=== PATIENT | female | born 1990 | race Caucasian/White ===

== ENCOUNTER 2017-09-28 09:11 | Emergency (ER) | payer OTHER ==
[~2017-09-28] VITALS: Ht 167.6 cm; Wt 87.4 kg
[~2017-09-28 09:11] MED LIST: LEVO250T9 PO; UDROBDM PO
[2017-09-28 09:13] VITALS: Ht 167.6 cm; Wt 87.4 kg
[2017-09-28] MEDS ORDERED: CEPH-443 PO (10:10)
[2017-09-28] MEDS ORDERED: MUPI22OI2 TOP (10:10)
--- NOTE | 2017-09-28 10:15 | ERD ---
ER Documentation Chief Complaint Chief Complaint rash to face spreading to chest x2 days HPI This is a 27-year-old female who presents the emergency department today for a rash that stings on her face that is spreading to her chest for the past 2 days. Patient states that she used Noxzema for acne to clean her face. Denies any new soaps, new detergents, new foods. States that she does get laser hair removal. Denies any fevers or chills. ROS All systems reviewed and are negative except as per history of present illness. Medications Home Meds Active Scripts Cephalexin* (Keflex*) 500 Mg Capsule, 500 MG PO QID for 7 Days, CAP Prov:TATI GILBERT PA-C 09/28/17 Mupirocin* (Bactroban*) 2% -22 Gram Oint...g., 1 APPLIC TOP BID for 7 Days, EA Prov:TATI GILBERT PA-C 09/28/17 Levofloxacin* (Levofloxacin*) 250 Mg Tablet, 250 MG PO DAILY for 3 Days, TAB Prov:ESTELITA BENJAMIN PASTRY COOK 01/18/16 Guaifenesin-Dextromethorphan* (Robitussin* DM) 5 Ml Syrup, 5 ML PO Q4H Y for cough for 5 Days Prov:ESTELITA BENJAMIN NP 01/18/16 Allergies Allergies: Coded Allergies: No Known Drug Allergies (Verified Allergy, Mild, 09/28/17) PMhx/Soc Medical and Surgical Hx: pt denies Medical Hx, pt denies Surgical Hx History of Surgery: No Anesthesia Reaction: No Hx Neurological Disorder: No Hx Respiratory Disorders: No (Bronchitis ) Hx Cardiac Disorders: No Hx Psychiatric Problems: No Hx Miscellaneous Medical Probl: No Hx Alcohol Use: Yes (glass of white wine last week) Hx Substance Use: No Hx Tobacco Use: No Smoking Status: Never smoker Physical Exam Vitals Vital Signs Date Time Temp Pulse Resp B/P Pulse Ox O2 Delivery O2 Flow Rate FiO2 09/28/17 09:13 99.2 98 18 135/77 96 Physical Exam Const: NAD Head: Atraumatic Eyes: Normal Conjunctiva ENT: Normal External Ears, Nose and Mouth. No evidence of angioedema. Uvula midline. Neck: Full range of motion..~ No meningismus. Resp: Clear to auscultation bilaterally Cardio: Regular rate and rhythm, no murmurs Abd: Soft, non tender, non distended. Normal bowel sounds Skin: Multiple pinpoint small pustules over her face and neck with mild erythema. No purulent drainage. Back: No midline or flank tenderness Ext: No cyanosis, or edema Neur: Awake and alert Psych: Normal Mood and Affect Procedures/MDM This a 27-year-old female who presents emergency department today for rash on her and neck for the past 2 days that is getting worse. On physical exam patient has multiple small pustules that are pinpoint diffusely over her face and neck. Patient does endorse getting laser hair removal in her symptoms at this time was consistent with folliculitis. Patient is afebrile and otherwise well-appearing. She is very talkative. Low suspicion for angioedema or anaphylaxis. Low suspicion for urticaria, SJS, cellulitis, deep space tracking infection, viral exanthem. Patient will be given a prescription for Bactroban and Keflex. At this time the patient is stable for discharge and outpatient management. Patient should follow up with their PCP in the next 1-2 days. They may return to the emergency department sooner for any persistent or worsening of symptoms. Patient understood and agreed with the plan. Dr. Stout has seen and evaluated the patient and she is in agreement with the plan. Departure Diagnosis: Primary Impression: Rash and other nonspecific skin eruption Condition: Fair Patient Instructions: Self-Care for Skin Rashes, Folliculitis Referrals: TONI SOW (PCP) Additional Instructions: Call your primary care doctor TOMORROW for an appointment during the next 1-2 days.See the doctor sooner or return here if your condition worsens before your appointment time. take antibiotics as prescribed. Keep area clean and do not use Noxzema at this time Do not get laser hair removal TATI GILBERT PA-C Sep 28, 2017 10:15
== END 2017-09-28 10:17 | disposition home or self-care (01) ==
LOC: FTE 09:11
DX: R21 Rash and other nonspecific skin eruption (principal)
CPT/HCPCS: 99284

== ENCOUNTER 2018-11-28 01:12 | Emergency (ER) | payer SELFPAY ==
[~2018-11-28] VITALS: Ht 167.6 cm; Wt 91.8 kg
[~2018-11-28 01:12] MED LIST changes: +CEPH-443 PO; +GUAI5SYR2 PO; +MUPI22OI2 TOP; -UDROBDM PO
[2018-11-28 01:19] VITALS: BP 133/78; PULSE 101; RESP 18; Ht 167.6 cm; Wt 91.8 kg
== END 2018-11-28 03:03 | disposition left against medical advice (07) ==
LOC: FTE 01:12
DX: Z53.21 Procedure and treatment not carried out due to patient leaving prior to being seen by health care provider (principal)